=== PATIENT | female | born 1985 | race Caucasian/White ===

== ENCOUNTER 2017-10-14 13:49 | Emergency (ER) | END 2017-10-14 17:12 | disposition home or self-care (01) ==

== ENCOUNTER 2017-12-23 09:45 | Emergency (ER) | END 2017-12-23 10:13 | disposition home or self-care (01) ==

== ENCOUNTER 2018-01-03 19:28 | Inpatient (IN) | END 2018-01-05 15:30 | disposition home or self-care (01) | DRG 781 ==